=== PATIENT | male | born 1975 | race Caucasian/White ===

== ENCOUNTER 2021-07-21 16:47 | Emergency (ER) | payer OTHER ==
[~2021-07-21] VITALS: Ht 180.3 cm; Wt 107.5 kg
[2021-07-21 17:29] LABS: CLARITY,URINE CLEAR; COLOR,URINE YELLOW
[2021-07-21 17:30] LABS: BILIRUBIN,URINE NEGATIVE (NEG); NITRITE,URINE NEGATIVE (NEG); PROTEIN,URINE NEGATIVE (NEG-TRACE); UROBILINOGEN,URINE 0.2 mg/dL (0.2 mg/dL)
[2021-07-21] MEDS ORDERED: KETOROLAC 30 MG/ML VIAL. IVP ONE (17:30)
[2021-07-21 17:31] LABS: BACTERIA,URINE 0 /HPF (0-FEW); RBC,URINE 20-40 /HPF (0-2); WBC,URINE 0 /HPF (0-4)
[2021-07-21 17:46] LABS: BASO # 0.1 x10^3/uL (0.0-0.2); BASO % 1 % (0-3); EOS # 0.1 x10^3/uL (0.0-0.7); EOS % 1 % (0-3); HEMATOCRIT 47.4 % (39.0-53.0); HEMOGLOBIN 15.8 g/dL (13.0-17.5); LYMPH # 1.9 x10^3/uL (1.0-4.8); LYMPH % 24 % (24-48); MEAN CORPUSCULAR HEMOGLOBIN 30 pg (25-35); MEAN CORPUSCULAR HGB CONC 33 g/dL (31-37); MEAN CORPUSCULAR VOLUME 89 fL (79-100); MONO # 0.4 x10^3/uL (0.0-1.1); MONO % 5 % (0-9); NEUT # 5.6 x10^3/uL (1.8-7.7); NEUT % 70 % (31-73); PLATELET COUNT 322 x10^3/uL (140-400); RED BLOOD COUNT 5.31 x10^6/uL (4.30-5.70); RED CELL DISTRIBUTION WIDTH 13.9 % (11.5-14.5); WHITE BLOOD COUNT 8.1 x10^3/uL (4.0-11.0)
[2021-07-21 17:52] LABS: CREATININE 1.1 mg/dL (0.7-1.3); GFR 71.4; POTASSIUM 3.7 mmol/L (3.5-5.1)
[2021-07-21 17:57] LABS: ALBUMIN 3.6 g/dL (3.4-5.0); TOTAL BILIRUBIN 0.4 mg/dL (0.2-1.0); TOTAL PROTEIN 7.3 g/dL (6.4-8.2)
--- NOTE | 2021-07-21 18:25 | RAD ---
CLINICAL HISTORY: Reason: left and right testicular pain / Spl. Instructions: / History: COMPARISON: None available. TECHNIQUE: Ultrasound images of the scrotum was performed with lee-scale and color doppler. FINDINGS: The right testicle measures 4.8 x 2.9 x 2.8 cm and is homogeneous. The left testicle measures 5 x 3.7 x 2.7 cm and is homogeneous. There is no intratesticular abnormality. Testicular vascularity is symmetric and within normal limit s. The epididymis is normal in appearance bilaterally. There is no evidence of varicocele. There are small bilateral hydroceles. No scrotal wall thickening or hyperemia is appreciated. IMPRESSION: 1. Normal blood flow in the testicles. 2. Small bilateral hydroceles. Electronically signed by: Augustine Nagel MD (07/21/2021 6:23 PM) [facility]
[2021-07-21] MEDS ORDERED: IOHEXOL 300 MG/ML 100ML VIAL. IV ONE (18:30)
[2021-07-21] MEDS ORDERED: CONTRAST GIVEN. MC PRN (18:30)
--- NOTE | 2021-07-21 18:33 | PHYS DOC ---
Past Medical History Additional Past Medical Histor: ADHD (SHEKHAR TAYLOR APRN) Past Surgical History: Other Additional Past Surgical Histo: LUMBAR (SHEKHAR TAYLOR APRN) General Adult EDM: Chief Complaint: TESTICULAR PAIN OR INJURY HPI: HPI: Patient is a 46-year-old male who presents to the emergency department complaining of left and right testicular pain, patient reports it hurts more on the right and and does left, patient reports he noticed a slight pain last night approximately 2100 when he went to bed, woke up this morning approximately 730 with an increase in pain that he rates at a 9 out of 10. Patient denies recent trauma to his testicles, reports he has been having sex every day, he has m asturbated as well, patient reports sexual intercourse with single partner, denies increased urinary frequency, urinary pressure, denies hematuria or other dysuria, patient reports his urine is clear yellow, patient denies STI concerns. Patient denies abdominal discomfort, flank pain, nausea, vomiting, or diarrhea. Patient denies chest pains, chest congestion. Patient denies recent fever or chills. Patient reports his only home medication is Adderall. Patient states he did take an [id number] 2 tablets of ibuprofen at noon without noticeable relief and testicular discomfort. Patient reports its a sharp pain that seems to wax and wane, currently rating a 5 out of 10 pain scale. Patient denies a history of cigarette smoking, denies EtOH use or illicit drug use. Patient states he did have a kidney stone 20 years ago. (SHEKHAR TAYLOR APRN) Review of Systems: Review of Systems: 14 body systems of review of systems have been reviewed. See HPI for pertinent positives and negative responses, otherwise all other systems are negative, nonpertinent or noncontributory. Constitutional: Negative except as outlined in HPI above. Skin: Negative except as outlined in HPI above. Eyes: Negative except as outlined in HPI above. HENT: Negative except as outlined in HPI above. Respiratory: Negative except as outlined in HPI above. Cardiovascular: Negative except as outlined in HPI above. GI: Negative except as outlined in HPI above. : Negative except as outlined in HPI above. Musculoskeletal: Negative except as outlined in HPI above. Integument: Negative except as outlined in HPI above. Neurologic: Negative except as outlined in HPI above. Endocrine: Negative except as outlined in HPI above. Lymphatic: Negative except as outlined in HPI above. Psychiatric: Negative except as outlined in HPI above. (SHEKHAR TAYLOR APRN) Heart Score: C/O Chest Pain: No Risk Factors: Risk Factors: DM, Current or recent (<one month) smoker, HTN, HLP, family history of CAD, obesity. Risk Scores: Score 0 - 3: 2.5% MACE over next 6 weeks - Discharge Home Score 4 - 6: 20.3% MACE over next 6 weeks - Admit for Clinical Observation Score 7 - 10: 72.7% MACE over next 6 weeks - Early Invasive Strategies (SHEKHAR TAYLOR APRN) Current Medications: Current Medications Medications (Trade) Dose Ordered Sig/Ariana Start Time Stop Time Status Last Admin Dose Admin Info (CONTRAST GIVEN -- Rx MONITORING) 1 each PRN DAILY PRN 07/21/21 18:30 07/23/21 18:29 Iohexol (Omnipaque 300 Mg/ml) 75 ml 1X ONCE 07/21/21 18:30 07/21/21 18:31 DC Ketorolac Tromethamine (Toradol 30mg Vial) 30 mg 1X ONCE 07/21/21 17:30 07/21/21 17:31 DC 07/21/21 17:40 30 MG (SHEKHAR TAYLOR APRN) Allergies: Allergies: Allergies Coded Allergies Type Severity Reaction Last Updated Verified No Known Drug Allergies 07/21/21 No (SHEKHAR TAYLOR APRN) Physical Exam: PE: Constitutional: Well developed, well nourished, no acute distress, non-toxic appearance. 38-year-old in no apparent distress. HENT: Normocephalic, atraumatic. Eyes: Conjunctiva normal, no discharge. Neck: Normal range of motion. Cardiovascular: Distal cap refill less than 2 seconds, no cyanosis appreciated. Lungs & Thorax: Patient is in no respiratory distress, no adventitious lung sounds appreciated. Abdomen: Bowel sounds normal, soft, no tenderness, no masses, no pulsatile masses. No bruising or skin discoloration of the abdomen. Skin: Warm, dry, no erythema, no rash. Back: No tenderness, no CVA tenderness. Extremities: No tenderness, no cyanosis, no clubbing, ROM intact, no edema. Neurologic: Alert and oriented X 3, normal motor function, normal sensory function, no focal deficits noted. Psychologic: Affect normal, judgement normal, mood normal. : Scrotal exam reveals no rashes or lesions to the scrotum, the scrotum was nonerythematous, positive cremasteric reflex, pain to palpation of testes bilaterally, the right epididymis palpated larger than the left epididymis, no hernias appreciated, the patient is circumcised, no drainage from urethral meatus appreciated. (SHEKHAR TAYLOR APRN) Current Patient Data: Labs: Laboratory Tests Test 07/21/21 16:55 07/21/21 17:40 Urine Collection Type Unknown Urine Color Yellow Urine Clarity Clear Urine pH 7.0 (<5.0-8.0) Urine Specific [place] 1.020 (1.000-1.030) Urine Protein Negative mg/dL (NEG-TRACE) Urine Glucose (UA) Negative mg/dL (NEG) Urine Ketones (Stick) Negative mg/dL (NEG) Urine Blood Large (NEG) Urine Nitrite Negative (NEG) Urine Bilirubin Negative (NEG) Urine Urobilinogen Dipstick 0.2 mg/dL (0.2 mg/dL) Urine Leukocyte Esterase Negative (NEG) Urine RBC 20-40 /HPF (0-2) Urine WBC 0 /HPF (0-4) Urine Bacteria 0 /HPF (0-FEW) White Blood Count 8.1 x10^3/uL (4.0-11.0) Red Blood Count 5.31 x10^6/uL (4.30-5.70) Hemoglobin 15.8 g/dL (13.0-17.5) Hematocrit 47.4 % (39.0-53.0) Mean Corpuscular Volume 89 fL (79-100) Mean Corpuscular Hemoglobin 30 pg (25-35) Mean Corpuscular Hemoglobin Concent 33 g/dL (31-37) Red Cell Distribution Width 13.9 % (11.5-14.5) Platelet Count 322 x10^3/uL (140-400) Neutrophils (%) (Auto) 70 % (31-73) Lymphocytes (%) (Auto) 24 % (24-48) Monocytes (%) (Auto) 5 % (0-9) Eosinophils (%) (Auto) 1 % (0-3) Basophils (%) (Auto) 1 % (0-3) Neutrophils # (Auto) 5.6 x10^3/uL (1.8-7.7) Lymphocytes # (Auto) 1.9 x10^3/uL (1.0-4.8) Monocytes # (Auto) 0.4 x10^3/uL (0.0-1.1) Eosinophils # (Auto) 0.1 x10^3/uL (0.0-0.7) Basophils # (Auto) 0.1 x10^3/uL (0.0-0.2) Sodium Level 142 mmol/L (136-145) Potassium Level 3.7 mmol/L (3.5-5.1) Chloride Level 102 mmol/L (98-107) Carbon Dioxide Level 25 mmol/L (21-32) Anion Gap 15 (6-14) H Blood Urea Nitrogen 14 mg/dL (8-26) Creatinine 1.1 mg/dL (0.7-1.3) Estimated GFR (Cockcroft-Gault) 71.4 BUN/Creatinine Ratio 13 (6-20) Glucose Level 139 mg/dL (70-99) H Calcium Level 8.0 mg/dL (8.5-10.1) L Total Bilirubin 0.4 mg/dL (0.2-1.0) Aspartate Amino Transferase (AST) 8 U/L (15-37) L Alanine Aminotransferase (ALT) 27 U/L (16-63) Alkaline Phosphatase 121 U/L (46-116) H Total Protein 7.3 g/dL (6.4-8.2) Albumin 3.6 g/dL (3.4-5.0) Albumin/Globulin Ratio 1.0 (1.0-1.7) Laboratory Tests 07/21/21 17:40 Laboratory Tests 07/21/21 17:40 Vital Signs: Vital Signs Date Time Temp Pulse Resp B/P (MAP) Pulse Ox O2 Delivery O2 Flow Rate FiO2 07/21/21 17:44 101 21 135/76 (95) 98 Room Air 07/21/21 16:47 98.5 98.5 (SHEKHAR TAYLOR APRN) EKG: EKG: [] (SHEKHAR TAYLOR APRN) Radiology/Procedures: Radiology/Procedures: REASON: left and right testicular pain PROCEDURE: TESTICULAR/SCROTUM CLINICAL HISTORY: Reason: left and right testicular pain / Spl. Instructions: / History: COMPARISON: None available. TECHNIQUE: Ultrasound images of the scrotum was performed with lee-scale and color doppler. FINDINGS: The right testicle measures 4.8 x 2.9 x 2.8 cm and is homogeneous. The left testicle measures 5 x 3.7 x 2.7 cm and is homogeneous. There is no intratesticular abnormality. Testicular vascularity is symmetric and within normal limits. The epididymis is normal in appearance bilaterally. There is no evidence of varicocele. There are small bilateral hydroceles. No scrotal wall thickening or hyperemia is appreciated. IMPRESSION: 1. Normal blood flow in the testicles. 2. Small bilateral hydroceles. Electronically signed by: Augustine Nagel MD (07/21/2021 6:23 PM) [facility] REASON: Testicular pain, hematuria PROCEDURE: CT ABDOMEN PELVIS WO CONTRAST CT abdomen pelvis without contrast dated 07/21/2021 COMPARISON: None CLINICAL INDICATION: Is testicle pain and hematuria TECHNIQUE: Contiguous axial imaging the M pelvis performed without the administration of IV or oral contrast. One or more of the following individualized dose reduction techniques were utilized for this examination: 1. Automated exposure control 2. Adjustment of the mA and/or kV according to patient size 3. Use of iterative reconstruction technique FINDINGS: Limited images of lung bases are clear. Minimal groundglass density in the left lower lobe, nonspecific. No pleural or pericardial effusion. Solid abdominal viscera not well evaluated in the absence of contrast material. No apparent attenuation abnormality of the spleen or pancreas. Adrenal glands are unremarkable. There is diffuse low-density liver compatible with fatty infiltration. Gallbladder is collapsed and not well evaluated. Kidneys are symmetric in size and attenuation. No calcific renal or ureteral stone. No hydronephrosis. No significant inflammatory changes in the perinephric fat. Unopacified GI tract normal in caliber and contour. No focal bowel wall thickening. No inflammatory stranding in the mesentery. The appendix is normal in caliber. No ascites or lymphadenopathy. Abdominal aorta normal in caliber. Images of pelvis show nondistended urinary bladder. No calcific bladder stone. Prostate gland is normal in size. No free fluid or pelvic adenopathy. Small bilateral hydroceles. Bone windows show no acute finding. Multilevel spondylosis. IMPRESSION: 1. No acute abnormality of abdomen or pelvis. No renal stone or hydronephrosis. 2. Mild fatty infiltration of the liver. 3. Normal appendix. Electronically signed by: Shekhar Pack MD (07/21/2021 6:50 PM) [facility] (SHEKHAR TAYLOR APRN) Course & Med Decision Making: Course & Med Decision Making Pertinent Labs and Imaging studies reviewed. (See chart for details) 46-year-old male, vital signs reviewed, presents to the emergency department concerning bilateral testicular pain. Physical examination concerning for testicular torsion versus other genital urological process. Will order urinalysis assay, CBC, CMP, dysuria Kuehler/scrotal ultrasound. Patient CBC and CMP are unremarkable, however patient does show hematuria without leukocyte esterase or other urological abnormality. Patient denies flank pain, denies CVA tenderness to palpation, reviewed case and ED work-up with ED attending physician Dr. Phelps, is suspicious for renal colic, will order CT abdomen pelvis without contrast stone study. Discussed with patient findings, patient is amenable to CT scan, patient reports he did have discussed with patient findings, patient is amenable to CT scan, patient reports he did have kidney stone 20 years ago with similar symptoms. CT scan negative for acute process, Dr. Phelps examined patient at bedside, suspicious for past renal colic, will order [place] for ongoing pain, urology follow-up. Discussed with patient strict follow-up with urology, primary care for ongoing symptoms, discussed [place] medication, do not drive or operate heavy machinery while using, may use ibuprofen for pain, patient gave verbal understanding and is amenable to ED discharge planning. Discussed with the patient all findings and diagnostic testing as well as the need to follow-up with their primary care provider for further evaluation and treatment or return to the ED if any new or worsening symptoms. Strict return precautions were also discussed at length, the patient voiced understanding and agreement with the discharge planning. The patient was nontoxic in appearance, in no apparent distress, and hemodynamically stable at the time of disposition. (SHEKHAR TAYLOR APRN) Course & Med Decision Making This patient was initially seen by the nurse practitioner. I saw the patient myself. I reviewed the patient's radiographic studies, laboratory exams and urinalysis. Urinalysis demonstrates hematuria without evidence of obvious other abnormality. Imaging studies are unremarkable. She describes intermittent, colicky pain, mostly in his testes. He denies nausea or vomiting. No testicular swelling or redness. No dysuria, no gross hematuria, he does report some urinary urgency. He has had a history of previous kidney stone, he reports that this felt relatively similar. There is no ureteral stone noted on radiograph, thus no radiopaque stone noted. There is no hydronephrosis. His abdomen is soft, nondistended, nontender to palpation. No CVA tenderness. Genital exam is completely unremarkable, testes are descended bilaterally, there is no induration, warmth, edema or swelling of the scrotum. His testes are nontender. Normal testicular lie noted. I explained that it is possible that pedro chua had a recently passed stone and has residual colic. There is no current indication for further invasive exams or admission. He is given outpatient information for follow-up with urology services, and explained that he may need to have further outpatient testing or procedures, such as cystoscopy. The patient also is a primary care physician with whom he may follow-up. Recommend that the patient be given a dose of [place] here for further pain control, he should also be discharged with [place] for home. Very strict return precautions are provided to the patient. He verbalizes understanding and is comfortable with the plan of care. (RUPERT PHELPS DO) Elmer Disclaimer: Elmer Disclaimer: This electronic medical record was generated, in whole or in part, using a voice recognition dictation system. (SHEKHAR TAYLOR APRN) Departure Departure Impression: Primary Impression: Testicular pain Qualified Codes: N50.811 - Right testicular pain; N50.812 - Left testicular pain Additional Impression: Hematuria Qualified Codes: R31.9 - Hematuria, unspecified Disposition: 01 HOME / SELF CARE / HOMELESS Condition: GOOD Referrals: NON,STAFF (PCP) Additional Instructions: You are seen in the emergency department today for testicular pain, a sonogram was performed did not show any concerning findings of your testicles, you did have blood in your urine, this prompted a CT scan of your abdomen and pelvis, while you did have a history of kidney stones, there were no kidney stones present in today's study. It is likely you had a small stone that has passed, because of your residual pain I am prescribing you some narcotic pain medication, please do not drive or operate heavy machinery or perform dangerous activities while taking this medication, I am also prescribing you ibuprofen. I have listed a urologist for you to follow-up with for ongoing symptoms, please contact Dr. Quezada tomorrow to let her know of your visit today and follow her recommendations. Stay well-hydrated, please return to the emergency department for worsening symptoms or other concerns. Thank you for visiting our Emergency Department. It was a pleasure taking care of you today in the emergency department and we appreciate you trusting us with your care. If any additional problems come up don't hesitate to return to visit us. Please follow up with your primary care provider so they can plan additional care if needed and know about the problem that you had. If symptoms worsen come back to the Emergency Department. Any concerning symptoms that start such as chest pain, shortness of air, weakness or numbness on one side of the body, running high fevers or any other concerning symptoms return to the ER. EMERGENCY DEPARTMENT GENERAL DISCHARGE INSTRUCTIONS Thank you for coming to [facility] Emergency Department (ED) today and trusting us with you care. We trust that you had a positive experience in our Emergency Department. If you wish to speak to the department management, you may call the Director at [phone]. YOUR FOLLOW UP INSTRUCTIONS ARE FOLLOWS: 1. Do you have a private Doctor? If you do not have a private doctor, please ask for a resource list of physicians or clinics that may be able to assist you with follow up care. 2. The Emergency Physicain has interpreted your x-rays. The X-Ray specialist will also review them. If there is a change in the findings, you will be notified in 48 hours when at all possible. 3. A lab test or culture has been done, your results will be reviewed and you will be notified if you need a change in treatment. ADDITIONAL INSTRUCTIONS AND INFORMATION: 1. Your care today has been supervised by a physician who is specially trained in emergency care. Many problems require more than one evaluation for a complete diagnosis and treatment. We recommend that you schedule your follow up appointment as recommended to ensure complete treatment of you illness or injury. If you are unable to obtain follow up care and continue to have a problem, or if your condition worsens, we recommend that you return to the ED. 2. We are not able to safely determine your condition over the phone nor are we able to give sound medical advice over the phone. For these safety reasons, if you call for medical advice we will ask you to come to the ED for further evaluation. 3. If you have any questions regarding these discharge instructions please call the ED at [phone]. SAFETY INFORMATION: In the interest of safety, wellness, and injury prevention; we encourage you to wear your sealbelt, if you smoke; quite smoking, and we encourage family to use a protective helmet for bicycling and other sporting events that present an increased risk for head injury. IF YOUR SYMPTOMS WORSEN OR NEW SYMPTOMS DEVELOP, OR YOU HAVE CONCERNS ABOUT YOUR CONDITION; OR IF YOUR CONDITION WORSENS WHILE YOU ARE WAITING FOR YOUR FOLLOW UP APPOINTMENT; EITHER CONTACT YOUR PRIMARY CARE DOCTOR, THE PHYSICIAN WHOSE NAME AND NUMBER YOU WERE GIVEN, OR RETURN TO THE ED IMMEDIATELY. Scripts Hydrocodone Bit/Acetaminophen (HYDROCODONE-APAP 5-325 ) 1 Tab Tablet 1 TAB PO PRN Q6HRS PRN for SEVERE PAIN 7-10, #10 TAB 0 Refills Prov: SHEKHAR TAYLOR APRN 07/21/21 Ibuprofen (IBUPROFEN) 600 Mg Tablet 600 MG PO PRN Q6HRS PRN for INFLAMMATION, #30 TAB 0 Refills Prov: SHEKHAR TAYLOR APRN 07/21/21 SHEKHAR TAYLOR APRN Jul 21, 2021 18:33 RUPERT PHELPS DO Jul 22, 2021 01:19
--- NOTE | 2021-07-21 18:53 | RAD ---
CT abdomen pelvis without contrast dated 07/21/2021 COMPARISON: None CLINICAL INDICATION: Is testicle pain and hematuria TECHNIQUE: Contiguous axial imaging the M pelvis performed without the administration of IV or oral c ontrast. One or more of the following individualized dose reduction techniques were utilized for this examinat ion: 1. Automated exposure control 2. Adjustment of the mA and/or kV according to patient size 3. Use of iterative reconstruction technique FINDINGS: Limited images of lung bases are clear. Minimal groundglass density in the left lower lobe, nonspecif ic. No pleural or pericardial effusion. Solid abdominal viscera not well evaluated in the absence of contrast material. No apparent attenuati on abnormality of the spleen or pancreas. Adrenal glands are unremarkable. There is diffuse low-densi ty liver compatible with fatty infiltration. Gallbladder is collapsed and not well evaluated. Kidneys are symmetric in size and attenuation. No calcific renal or ureteral stone. No hydronephrosis . No significant inflammatory changes in the perinephric fat. Unopacified GI tract normal in caliber and contour. No focal bowel wall thickening. No inflammatory s tranding in the mesentery. The appendix is normal in caliber. No ascites or lymphadenopathy. Abdomina l aorta normal in caliber. Images of pelvis show nondistended urinary bladder. No calcific bladder stone. Prostate gland is norm al in size. No free fluid or pelvic adenopathy. Small bilateral hydroceles. Bone windows show no acute finding. Multilevel spondylosis. IMPRESSION: 1. No acute abnormality of abdomen or pelvis. No renal stone or hydronephrosis. 2. Mild fatty infiltration of the liver. 3. Normal appendix. Electronically signed by: Shekhar Pack MD (07/21/2021 6:50 PM) [facility]
[2021-07-21 19:22] VITALS: BP 148/82
[2021-07-21] MEDS ORDERED: HYDR-2761 PO (19:30)
[2021-07-21] MEDS ORDERED: IBUP-1007 PO (19:30)
[2021-07-21] MEDS ORDERED: HYDROcodone/APAP 10/325 1 TAB TABLET PO ONE (19:30)
== END 2021-07-21 20:05 | disposition home or self-care (01) ==
LOC: ER 16:47
DX: N50.812 Left testicular pain (principal); N50.811 Right testicular pain; R31.9 Hematuria, unspecified
CPT/HCPCS: 74176; 76870; 80053; 81001; 85025; 87491; 87591; 96374; 99285; J1885